=== PATIENT | female | born 1960 | race Caucasian/White ===

== ENCOUNTER 2016-10-01 19:13 | Emergency (ER) | payer OTHER ==
--- NOTE | 2016-10-01 21:15 | DIAGNOSTIC IMAGING REPORT ---
PROCEDURE: CT ABDOMEN/PELVIS W/O CONTRAST INDICATION: Diarrhea, fever, distention, pain. History of splenomegaly. Status post appendectomy. TECHNIQUE: Noncontrast axial images with sagittal and coronal reformations. Intravenous contrast not utilized (the patient reports contrast allergy). COMPARISON: Comparison is made to limited abdominal ultrasound 01/22/2012. FINDINGS: ABDOMEN: There is a heterogeneous hyperdense appearance of the liver with nodular surface changes (suggest cirrhosis). There is evidence of portal hypertension with upper abdominal and periumbilical varices, and moderate to marked splenomegaly (17 cm). There is a small amount of ascites. There is moderate to marked thickening of the gallbladder wall. There is a moderate amount of ingested material in the stomach. There is moderate mucosal thickening of the distal esophagus of. Small bowel pattern is within normal limits. There is moderate mucosal thickening of the cecum, ascending colon, and proximal transverse colon with mild surrounding of pericolonic edema. Status post appendectomy. Pancreas, kidneys, and aorta are normal. Mild degenerative changes of the lumbar spine. There is an old calcified granuloma at the left lung base. PELVIS: Uterus and adnexal structures are normal. Small amount of ascites. IMPRESSION: 1. Moderate mucosal thickening of the right colon with pericolonic edema. Findings suggest enterocolitis (most likely infectious, idiopathic less likely). 2. Hyperdense liver with cirrhosis. While etiology is unclear, consider hemosiderosis or hemochromatosis. 3. Portal hypertension with abdominal and periumbilical varices, associated with moderate to marked splenomegaly (17 cm). 4. Small amount of ascites. 5. Moderate mucosal thickening of the gallbladder is nonspecific, although could be related to low protein state, intrinsic liver disease, ascites, or cholecystitis. No evidence of calcified gallstones. 6. Status post appendectomy. 7. Findings discussed with ELMER Montes. All CT scans at this facility use dose modulation, iterative reconstruction, and/or weight-based dosing when appropriate to reduce radiation dose to as low as reasonably achievable.
--- NOTE | 2016-10-01 21:49 | ED ORDER SUMMARY ---
..... Patient: VALENCIA ALCARAZ OrderSheet [facility] VisitID: [id number] [address] [place] [address] 56y, F Registration Date/Time: 10/01/2016 ORDER SHEET Weight: 70.3 kg (stated) Allergies: IV Contrast, Morphine Sulfate GENERAL ORDERS: UA-Culture if indicated Urgent (19:31 10/01/2016 EKoroleva P.A.-C) (Ack 19:34 CHategekimana) (21:00 CBradburn R.N.) CMP Urgent (19:10/01/2016 EKoroleva P.A.-C) (Ack 19:34 CHategekimana) (19:49 CBradburn R.N.) CBC w Diff Urgent (19:10/01/2016 EKoroleva P.A.-C) (Ack 19:34 CHategekimana) (19:49 CBradburn R.N.) PT with INR Urgent (19:31 10/01/2016 EKoroleva P.A.-C) (Ack 19:34 CHategekimana) (20:07 CBradburn R.N.) PTT Urgent (19:31 10/01/2016 EKoroleva P.A.-C) (Ack 19:34 CHategekimana) (20:07 CBradburn R.N.) Amylase Urgent (19:10/01/2016 EKoroleva P.A.-C) (Ack 19:34 CHategekimana) (19:49 CBradburn R.N.) Lipase Urgent (19:31 10/01/2016 EKoroleva P.A.-C) (Ack 19:34 CHategekimana) (19:49 CBradburn R.N.) Urine Drug Screen Urgent (19:37 10/01/2016 EKoroleva P.A.-C) (Ack 19:39 CHategekimana) (21:00 CBradburn R.N.) Ethyl Alcohol Urgent (19:37 10/01/2016 EKoroleva P.A.-C) (Ack 19:39 CHategekimana) (19:49 CBradburn R.N.) PCT (Procalcitonin) Urgent (19:37 10/01/2016 EKoroleva P.A.-C) (Ack 19:40 Ayoekimana) (19:49 CBradburn R.N.) CT Abd/Pel wo Cont Urgent (20:22 10/01/2016 EKoroleva P.A.-C) (Ack 20:32 Danina) (20:33 MCampbell) Vitals (21:26 10/01/2016 EKoroleva P.A.-C) (21:29 CBradburn R.N.) MEDICATION ORDERS: Ciprofloxacin PO 500 mg (NOW) (21:40 10/01/2016 EKoroleva P.A.-C) (Ack 21:40 CBradburn R.N.) (21:44 CBradburn R.N.) IV FLUIDS: IV NS : initial bolus 1000 mL (1000 mL/hr), then 20 mL/hr for X1 (NOW); Maxim (19:31 10/01/2016 EKoroleva P.A.-C) (Ack 19:50 CBradburn R.N.) (20:18 CBradburn R.N.) Reglan IV 10 mg (NOW) (19:31 10/01/2016 EKoroleva P.A.-C) (Ack 19:50 CBradburn R.N.) Zofran IV 4 mg (NOW) (19:31 10/01/2016 EKoroleva P.A.-C) (Ack 19:50 CBradburn R.N.) (20:19 CBradburn R.N.) ORDER SHEET NOTES: [Electronically signed by Maricarmen Gonzalez R.N. (22:01 10/01/2016)] [Electronically signed by Ramonita Arango P.A.-C (22:21 10/01/2016)] [Electronically locked/signed by Maricarmen Gonzalez R.N. (22:01 10/01/2016)]
--- NOTE | 2016-10-01 21:49 | ED NURSING NOTES ---
Clinical Report - Nurses [place] [address] [place] [address] 10/01/2016 19:16 Patient: VALENCIA ALCARAZ TRIAGE Triage time 19:20. Acuity: LEVEL 3. Chief Complaint: ABDOMINAL PAIN and DIARRHEA and FEVER and CHILLS. --19:27 Maricarmen Gonzalez R.N. 19:20 10/01/16. BP: 109/70 taken on the left arm, while lying. HR: 89 (regular and normal rate). RR: 18. O2 saturation: 97%. Temp: 97.9 F (oral). Pain level now: 08/03. --19:27 Maricarmen Gonzalez R.N. Weight: 70.3 kg stated. Height/Length: 63 inches Per Patient. BMI: 27.5. --19:23 Maricarmen Gonzalez R.N. Medications None. --19:24 Maricarmen Gonzalez R.N. Allergies IV Contrast. Morphine Sulfate. --19:24 Maricarmen Gonzalez R.N. History Arrived by private vehicle. Historian: patient. Accompanied by family. Primary physician (madan). Onset was gradual. Symptoms are intermittent (3 days ago). ( diarrhea started 3 days ago, headache, decreased appitite). She has had fever, diarrhea and abdominal pain. SOCIAL HX: Smoker - current status unknown. History of IV drug use: methamphetamines. Recently used drugs days ago. No alcohol use. SELF HARM ASSESSMENT: A self harm assessment was performed. The patient answered "no" to the question "Have you recently felt down, depressed, or hopeless?", "Have you noticed less interest or pleasure in doing things?", "Do you have thoughts of harming or killing yourself?", "Are you here because you tried to hurt yourself?", "Have you ever tried to hurt yourself before today?", "Have you recently had thoughts about harming or killing others?" and "Do you have any dangerous items in your possession?". --19:27 Maricarmen Gonzalez R.N. SOCIAL HX: Heavy tobacco smoker- 1 pack per day. --19:29 Maricarmen Gonzalez R.N. PROBLEMS: Enlarged spleen. Lumbar Strain. Abnormal Liver Function Test. Abdominal Pain. LNMP - Last Normal Menstrual Period. Hyperthyroidism. Neck pain. Degenerative Joint Disease. Ulcer years ago. Asthma. Last Tetanus. Contusion. Abrasion(s). UTI - Urinary Tract Infection. Eye Injury. Tetanus Status. Substance Abuse. Thyroid Disease. Chronic Back Pain. COPD - Chronic Obstructive Pulmonary Disease. Corneal Abrasion. --19: Maricarmen Gonzalez R.N. Peptic Ulcer Disease [RuleOut]. --19:25 Maricarmen Gonzalez R.N. Hepatitis [Chronic]. --19:38 Ramonita Arango P.A.-C The following entry was modified by Ramonita Arango P.A.-C, 19:38 <<STRICKEN ENTRY-- Hepatitis. --:27 Maricarmen Gonzalez R.N. --END STRIKE>>. ADDITIONAL SURGERIES: Appendectomy. Tubal Ligation. --: Maricarmen Gonzalez R.N. Interventions ID band on patient. --: Maricarmen Gonzalez R.N. PHYSICAL ASSESSMENT Ambulatory to room. GENERAL / NEURO / PSYCH: Alert. Oriented X 4. Appears anxious. HEENT: Mucous membranes are pink. RESPIRATORY: Respirations not labored. Breath sounds within normal limits. CVS: Normal sinus rhythm noted. Capillary refill less than 2 seconds. GI / : Abdomen soft and nontender. Bowel sounds within normal limits. SKIN: Skin is warm and dry. --:28 Maricarmen Gonzalez R.N. NURSING PROGRESS NOTES Patient gowned. Two patient identifiers checked. Call light placed in reach. Side rails up x 2. Bed placed in lowest position. Brakes of bed on. -- Maricarmen Gonzalez R.N. Patient ready for evaluation- chart flagged. --:28 Maricarmen Gonzalez R.N. 19:57 10/01/2016 Site #1 started via IV in the right hand with an 22g angiocath, with aseptic technique and good blood return; one attempt. Saline lock flushed with 10 mL saline. --19:57 Shavonne Joiner R.N. 20:11 10/01/2016 Started bag #1 1000 mL IV Fluids IV NS (Saline); bolus of 1000 mL wide open then over 1 hour(s) via site #1. Allergies verified and confirmed 5 rights. IV patency established. IV site checked: no pain, redness, or swelling. IV flushed thoroughly pre- and post-medication administration. --20:18 Maricarmen Gonzalez R.N. 20:12 10/01/2016 Reglan IV 10 mg (NOW) was refused by patient because nausea is gone. Maricarmen Gonzalez --20:19 Maricarmen Gonzalez R.N. 20:12 10/01/2016 Zofran (Ondansetron HCl) IVP 4 mg given over 1 minute(s) via site #1. Allergies verified and confirmed 5 rights. IV patency established. IV site checked: no pain, redness, or swelling. IV flushed thoroughly pre- and post-medication administration. IVP given by RN. --20:19 Maricarmen Gonzalez R.N. The patient is resting quietly. Overall patient status is the same- she states feels the same. GI / : Abdomen soft. Bowel sounds within normal limits. SKIN: Skin is warm and dry. Skin color within normal limits. --21:29 Maricarmen Gonzalez R.N. 21:15 10/01/16. BP: 112/60 taken on the left arm, while lying. HR: 74 (regular and normal rate). RR: 18 (regular and unlabored). O2 saturation: 100% on room air. Temp: deferred. Pain level now: 11/03. --21:29 Maricarmen Gonzalez R.N. 21:44 10/01/2016 Ciprofloxacin (Ciprofloxacin) PO Tablets 500 mg given. Allergies verified and confirmed 5 rights. --21:44 Maricarmen Gonzalez R.N. 21:44 10/01/16. BP: 108/52 taken on the left arm, while lying. HR: 84 (regular and normal rate). RR: 18 (regular). O2 saturation: 98% on room air. Temp: deferred. Pain level now: 10/03. --21:45 Maricarmen Gonzalez R.N. Overall patient status is improved- she states feels the same. --21:45 Maricarmen Gonzalez R.N. 21:59 10/01/2016 IV Fluids IV NS Discontinued: bag #1 completed upon discharge. Total amount infused: 1000 mL. IV patency established. IV site checked: no pain, redness, or swelling. IV flushed thoroughly. --21:59 Maricarmen Gonzalez R.N. 22:00 10/01/2016 Site #1 removed upon discharge. Catheter intact. Manual pressure and bandage applied. --22:00 Maricarmen Gonzalez R.N. DISPOSITION / DISCHARGE Condition at departure: improved and stable. No learning barriers present. Discharge instructions provided and reviewed with the patient. Reviewed medication(s) side effects, precautions, dosing and course information. Prescription(s) given to the patient. Patient verbalized understanding. Written instructions provided in Setswana. The patient was discharged home and accompanied by spouse. She left the Emergency Department ambulatory and via private vehicle. Spouse driving. --22:01 Maricarmen Gonzalez R.N. 22:00 10/01/16. BP: 109/54 taken on the left arm, while sitting. HR: 83 (regular and normal rate). RR: 18. O2 saturation: 98% on room air. Temp: deferred. Pain level now: 08/03. --22:01 Maricarmen Gonzalez R.N. Departure time: 22:01. --22:01 Maricarmen Gonzalez R.N. Locked/Released at 10/01/2016 22:02 by Maricarmen Gonzalez R.N.
--- NOTE | 2016-10-01 21:49 | ED CLINICAL REPORT ---
Clinical Report - Physicians/Mid Levels [facility] [address] [place] [address] 10/01/2016 19:16 Patient: VALENCIA ALCARAZ Time Seen: 19:39 Oct 01 2016. Arrived- By private vehicle. Historian- patient (friend). HISTORY OF PRESENT ILLNESS Chief Complaint: VOMITING and DIARRHEA. This started 3 days [employer] and is still present. The patient has had nausea, vomiting and diarrhea. Has not recently been camping or on antibiotics. The illness is described as moderate. (atient reports diarrhea nausea and vomiting off and on abdominal pain over the last 3 days. Reports some fevers at home. Denies any recent antibiotic use or hospitalizations. Patient reports history of hepatitis C. Reports recent drug use, mass about 5-7 days previously. Denies recent hospitalization. Parts hospitalization previously with thrombocytopenia.). REVIEW OF SYSTEMS The patient has had fever. No headache. All systems otherwise negative, except as recorded above. PAST HISTORY Problems: Hepatitis [Chronic]. Enlarged spleen. Lumbar Strain. Abnormal Liver Function Test. Abdominal Pain. LNMP - Last Normal Menstrual Period. Hyperthyroidism. Neck pain. Degenerative Joint Disease. Ulcer years ago. Asthma. Last Tetanus. Contusion. Abrasion(s). UTI - Urinary Tract Infection. Eye Injury. Tetanus Status. Substance Abuse. Thyroid Disease. Chronic Back Pain. COPD - Chronic Obstructive Pulmonary Disease. Corneal Abrasion. Additional Surgeries: Appendectomy. Tubal Ligation. Medications: None. Allergies: IV Contrast. Morphine Sulfate. SOCIAL HISTORY Alcohol use. History of IV drug use: methamphetamines. ADDITIONAL NOTES The nursing notes have been reviewed. PHYSICAL EXAM Vital Signs: 10/01/2016 19:20 BP: 109/70. HR: 89. RR: 18. O2 saturation: 97%. Temp: 97.9 F. Pain level now: 3/10. Appearance: Alert. No apparent distress. Does not appear to be anxious. ENT: Nose normal. Neck: Normal inspection. No lymphadenopathy. CVS: Normal heart rate and rhythm. Heart sounds normal. Respiratory: No respiratory distress. Breath sounds normal. No accessory muscle use or decreased air movement. Abdomen: Mild tenderness in the periumbilical area and suprapubic area. No tenderness in the right upper quadrant or guarding. Neuro: Oriented X 3. No motor deficit. LABS, X-RAYS, AND EKG Abdominal CT: IMPRESSION: 1. Moderate mucosal thickening of the right colon with pericolonic edema. Findings suggest enterocolitis (most likely infectious, idiopathic less likely). 2. Hyperdense liver with cirrhosis. While etiology is unclear, consider hemosiderosis or hemochromatosis. 3. Portal hypertension with abdominal and periumbilical varices, associated with moderate to marked splenomegaly (17 cm). 4. Small amount of ascites. 5. Moderate mucosal thickening of the gallbladder is nonspecific, although could be related to low protein state, intrinsic liver disease, ascites, or cholecystitis. No evidence of calcified gallstones. 6. Status post appendectomy. 7. Findings discussed with ELMER Montes. All CT scans at this facility use dose modulation, iterative reconstruction, and/or weight-based dosing when appropriate to reduce radiation dose to as low as reasonably achievable. Electronically Final signed by:Rolando Roldan MD 10/01/2016 9:11:54 PM. Laboratory Tests: UA-Culture if indicated: (YULIANA: 10/01/2016 20:50) ( MsgRcvd 10/01/2016 21:12) Final results Test Result Flag Units (Reference) URINE COLOR YELLOW URINE APPEARANCE CLEAR URINE GLUCOSE NEGATIVE (NEGATIVE) URINE BILIRUBIN NEGATIVE (NEGATIVE) URINE KETONE NEGATIVE (NEGATIVE) URINE SPECIFIC GRAVITY 1.015 (1.010-1.030) URINE PH 7.5 (5.0-8.0) URINE PROTEIN NEGATIVE (NEGATIVE) URINE UROBILINOGEN >=8.0 EU/dL (0.2-1.0) URINE NITRITE NEGATIVE (NEGATIVE) URINE BLOOD NEGATIVE (NEGATIVE) URINE LEUK ESTERASE NEGATIVE (NEGATIVE) URINE RBC 0-1 rbc/hpf (0-1) URINE WBC 0-1 wbc/hpf (0-1) URINE EPITHELIAL CELLS 1-3 EPI/hpf (0-5) URINE BACTERIA TRACE (<1+) (NONE SEEN) URINE COMMENT CULT NOT INDICATED URINE CULTURES ARE SET-UP BASED ON THE FOLLOWING CRITERIA:POSITIVE NITRITEPOSITIVE LEUKOCYTE ESTERASEGREATER THAN 10 WHITE BLOOD CELLSMODERATE (2+) OR GREATER BACTERIA CBC w Diff: (YULIANA: 10/01/2016 19:45) ( [facility] 10/01/2016 20:01) Final results Test Result Flag Units (Reference) WHITE BLOOD COUNT 4.6 K/uL (4.5-11.5) RED BLOOD COUNT 4.01 M/uL (4.00-5.20) HEMOGLOBIN 12.6 gm/dL (12.0-16.0) HEMATOCRIT 37.0 % (36.0-46.0) MEAN CELL VOLUME 92 fL (80-100) MEAN CORPUSCULAR HGB 31 pg (26-34) MEAN CORPUSCULAR HGB CONC 34 g/dL (31-37) RED CELL DISTRIBUTION WIDTH 15.3 H % (11.6-14.8) PLATELET COUNT 50 L K/uL (150-400) NEUTROPHIL % 71.2 % (50-75) LYMPH % 17.5 L % (25-40) MONO % 6.7 % (3-14) EOSINOPHIL % 4.6 H % (0-4) BASOPHIL % 0 % (0-2) PT with INR: (YULIANA: 10/01/2016 19:45) ( [facility] 10/01/2016 20:11) Final results Test Result Flag Units (Reference) INR 1.2 (0.8-1.2) Low Intensity Therapy: INR 1.5-2.0 PT range 18.5-23.1Mod.Intensity Therapy: INR 2.0-3.0 PT range 23.1-31.5High Intensity Therapy: INR 2.5-3.5 PT range 27.4-35.5High Intensity Therapy 2: INR 3.0-4.0 PT range 31.5-39.3 APTT 28 SECONDS (24-34) [id number]: (YULIANA: 10/01/2016 19:45) ( [facility] 10/01/2016 20:33) Final results Test Result Flag Units (Reference) PROCALCITONIN <0.5 ng/mL (0-0.5) PCT Concentration: Interpretation : Risk/option for action PCT <=0.5 ng/mL : Systemic : Low risk forinfection(sepsis): progression to severeis not likely. : systemic infection.Local bacterial : CAUTION-PCT levelsinfection is : below 0.5 ng/mL do notpossible. : exclude an infection,because localizedinfections (withoutsystemic signs) may beassociated with suchlow levels. If PCT ismeasured very earlyafter a bacterialchallenge (usually <6hours), these valuesmay still be low. Inthis case PCT shouldbe re-assessed 6-24hours later. PCT >0.5 and : Systemic infection: Moderate risk for<= 2 ng/mL : (sepsis) is : progression to severepossible, but : systemic infection.other conditions : The patient should beare known to : closely monitoredelevate PCT. : both clinically andby re-assessing PCTwithin 6-24 hours. PCT > 2 ng/mL : Systemic infection: High risk for(sepsis) is likely: progression to severeunless other : systemic infection.causes are known. : PCT >= 10 ng/mL : Important systemic: High likelihood ofinflammatory : severe sepsis orresponse, almost : septic shock.exclusively due to:severe bacterial :sepsis or septic :shock. : Urine Drug Screen: (YULIANA: 10/01/2016 20:50) ( [facility] 10/01/2016 21:25) Final results Test Result Flag Units (Reference) AMPHETAMINE/METHAMPHETAMINE POSITIVE H (NEGATIVE) BARBITURATE NEGATIVE (NEGATIVE) BENZODIAZEPINE NEGATIVE (NEGATIVE) CANNABINOID NEGATIVE (NEGATIVE) COCAINE NEGATIVE (NEGATIVE) ECSTASY NEGATIVE (NEGATIVE) METHADONE NEGATIVE (NEGATIVE) OPIATE NEGATIVE (NEGATIVE) The urine drug screen is a qualitative screening test fordrug overdose and abuse. All screen results should beconsidered as presumptive.Drugs screened for are as follows:BenzodiazepinesCocaineAmphetamines/MetamphetaminesTHC (Tetrahydrocannabinol)OpiatesBarbituratesEcstasyMethadonePositive results are unconfirmed. For confirmation, notifythe lab for the specimen to be sent to the reference lab.All confirmations must be performed by a differentmethodology.The ingestion of natural herbal and plant productscontaining Ephedra/Ephedra metabolites can produce in urineone or more substances capable of cross reacting withamphetamine/methamphetamine immunoassays. These testsprovide a preliminary result only. A more specificalternative chemical method must be used to obtain aconfirmed analytical result. Ethyl Alcohol: (YULIANA: 10/01/2016 19:45) ( [facility] 10/01/2016 20:14) Final results Test Result Flag Units (Reference) ETHYL ALCOHOL <3 L mg/dL (3-10) CMP: (YULIANA: 10/01/2016 19:45) ( [facility] 10/01/2016 20:14) Final results Test Result Flag Units (Reference) GLUCOSE 118 H mg/dL (70-110) BUN 10 mg/dL (7-18) CREATININE 0.7 mg/dL (0.6-1.3) Estimated GFR >60 mL/min Estimated GFR- >60 mL/min Note: Persistent reduction over 3 months in eGFR<60 mL/min/1.73 m2 defines CKD. Patients with eGFR values>=60 mL/min/1.73 m2 may also have CKD if evidence ofpersistent proteinuria. Additional information may be foundat www.kidney.org. SODIUM 145 mmol/L (136-145) POTASSIUM 3.5 mmol/L (3.5-5.1) CHLORIDE 109 H mmol/L (98-107) CARBON DIOXIDE 28 mmol/L (21-32) CALCIUM 7.7 L mg/dL (8.5-10.1) TOTAL PROTEIN 7.5 g/dL (6.4-8.2) ALBUMIN 2.8 L g/dL (3.3-5.0) BILIRUBIN, TOTAL 0.8 mg/dL (0.0-1.0) ALKALINE PHOSPHATASE 149 H U/L (46-116) AST (SGOT) 80 H U/L (15-37) ALT (SGPT) 119 H U/L (12-78) LIPASE 278 U/L (73-393) AMYLASE 44 U/L (25-115) . Note - Tests: (OLD CT: IMPRESSION- 1. Colitis, ascending colon. 2. Cirrhotic liver with evidence of worsening portal hypertension including new splenomegaly and more conspicuous portosystemic collaterals. RADIA Dictated By: Keyon Davalos MD 2016-04-05 19:51:55.177 Signed By: Keyon Davalos MD 2016-04-05 19:51:55.0 Transcribed By: Keyon Davalos 2016-04-05 19:51:55.253 OLD US: IMPRESSION- 1. Mildly thickened gallbladder wall measures 3.7 mm, appears less thick than the prior . No gallstones or sludge . No pericholecystic fluid. Positive sonographic Jade sign. 2. Common hepatic duct measures 4.4 mm. Common bile duct measures 6.9 millimeters which is prominent, upper limits of normal, but decreased from the prior 3. Splenomegaly, length of 15.9 cm 4. Cirrhosis RADIA Dictated By: Abelino Del Toro MD 2016-04-05 19:14:59.29 Signed By: Abelino Del Toro MD 2016-04-05 19:14:59.0 Addendum: ADDENDUM: 04/05/16 19:16 Acalculus acute cholecystitis not excluded in the appropriate clinical setting. No ascites is seen.). PROGRESS AND PROCEDURES Course of Care: During the time in the ED, the following DDX were considered: acute surgical abdomen, hemodynamic or metabolic instability, dehydration, gastroenteritis-viral, food borne, or bacterial, food intolerance, irritable or inflammatory bowel, infection, sepsis. H expresses desire to leave. She has a history of hepatitis C complicated with thrombocytopenia, as well as poor compliance. Patient was previously for colonoscopy out, however missed her appointment in June, has not rescheduled. Denies melena or hematochezia. Generalized abdominal pain. With no right upper quadrant tenderness. 04/05/16 patient admitted with similar symptoms with meth abuse, sepsis, colitis, thrombocytopenia at the time with elevated LFT. patient's was signs of hyperglycemia, suspect is also due to diarrhea. Otherwise stable. Discharged to home care. 10/01/2016 22:00 BP: 109/54. HR: 83. RR: 18. O2 saturation: 98%. Pain level now: 3/10. Patient is stable. Symptoms better. Patient/family counseled. Disposition: Discharged. CLINICAL IMPRESSION Vomiting with nausea and volume depletion. Diarrhea Acute gastroenteritis with volume depletion and dehydration. Moderate hypocalcemia. Chronic Elevated LFT Thrombocytopenia. INSTRUCTIONS Drink plenty of fluids. Warnings: Further evaluation is necessary. Prescription Medications: Zofran (orally disintegrating tablets) 4 mg: take 1 orally every 6 hours for 5 days as needed for nausea. Dispense fifteen (15). No refill. Substitution is permissible. Cipro 500 mg: take 1 tab orally every 12 hours for 10 days. No refills. Substitution is permissible. OTC Medications: Calcium Carbonate chewable tabs 1000 mg (available over the counter): chew and swallow 1 tab every 8 hours for 7 days. Dispense forty (40). No refill. Follow-up: Follow up with your doctor in three days as needed. (Electronically signed by Ramonita Arango P.A.-C 10/01/2016 22:21)
--- NOTE | 2016-10-01 21:49 | ED ORDER SUMMARY ---
..... Patient: VALENCIA ALCARAZ OrderSheet [facility] VisitID: [id number] [address] [place] [address] 56y, F Registration Date/Time: 10/01/2016 ORDER SHEET Weight: 70.3 kg (stated) Allergies: IV Contrast, Morphine Sulfate GENERAL ORDERS: UA-Culture if indicated Urgent (19:31 10/01/2016 EKoroleva P.A.-C) (Ack 19:34 CHategekimana) (21:00 CBradburn R.N.) CMP Urgent (19:10/01/2016 EKoroleva P.A.-C) (Ack 19:34 CHategekimana) (19:49 CBradburn R.N.) CBC w Diff Urgent (19:10/01/2016 EKoroleva P.A.-C) (Ack 19:34 CHategekimana) (19:49 CBradburn R.N.) PT with INR Urgent (19:31 10/01/2016 EKoroleva P.A.-C) (Ack 19:34 CHategekimana) (20:07 CBradburn R.N.) PTT Urgent (19:31 10/01/2016 EKoroleva P.A.-C) (Ack 19:34 CHategekimana) (20:07 CBradburn R.N.) Amylase Urgent (19:10/01/2016 EKoroleva P.A.-C) (Ack 19:34 CHategekimana) (19:49 CBradburn R.N.) Lipase Urgent (19:31 10/01/2016 EKoroleva P.A.-C) (Ack 19:34 CHategekimana) (19:49 CBradburn R.N.) Urine Drug Screen Urgent (19:37 10/01/2016 EKoroleva P.A.-C) (Ack 19:39 CHategekimana) (21:00 CBradburn R.N.) Ethyl Alcohol Urgent (19:37 10/01/2016 EKoroleva P.A.-C) (Ack 19:39 CHategekimana) (19:49 CBradburn R.N.) PCT (Procalcitonin) Urgent (19:37 10/01/2016 EKoroleva P.A.-C) (Ack 19:40 Ayoekimana) (19:49 CBradburn R.N.) CT Abd/Pel wo Cont Urgent (20:22 10/01/2016 EKoroleva P.A.-C) (Ack 20:32 Danina) (20:33 MCampbell) Vitals (21:26 10/01/2016 EKoroleva P.A.-C) (21:29 CBradburn R.N.) MEDICATION ORDERS: Ciprofloxacin PO 500 mg (NOW) (21:40 10/01/2016 EKoroleva P.A.-C) (Ack 21:40 CBradburn R.N.) (21:44 CBradburn R.N.) IV FLUIDS: IV NS : initial bolus 1000 mL (1000 mL/hr), then 20 mL/hr for X1 (NOW); Maxim (19:31 10/01/2016 EKoroleva P.A.-C) (Ack 19:50 CBradburn R.N.) (20:18 CBradburn R.N.) Reglan IV 10 mg (NOW) (19:31 10/01/2016 EKoroleva P.A.-C) (Ack 19:50 CBradburn R.N.) Zofran IV 4 mg (NOW) (19:31 10/01/2016 EKoroleva P.A.-C) (Ack 19:50 CBradburn R.N.) (20:19 CBradburn R.N.) ORDER SHEET NOTES: [Electronically signed by Maricarmen Gonzalez R.N. (22:01 10/01/2016)] [Electronically signed by Ramonita Arango P.A.-C (22:21 10/01/2016)] [Electronically locked/signed by Maricarmen Gonzalez R.N. (22:01 10/01/2016)]
--- NOTE | 2016-10-01 22:22 | ED MED RECONCILIATION SUMMARY ---
Patient: VALENCIA ALCARAZ Medication Reconciliation Report [facility] VisitID: [id number] [address] [place] [address] 56y, F Registration Date/Time: 10/01/2016 Weight: 70.3 kg Height/Length: 63 in. BMI: 27.5 ALLERGIES: IV Contrast, Morphine Sulfate The patient's Home Medications are listed below: NONE. The source(s) of the original Home Medication information: Not obtained. The following Medications were given to the patient in the Emergency Department: IV NS IV Fluids bolus 1000 mL wide open, administered: 10/01/2016 8:11:00 PM Zofran [IVP] IVP 4 mg, administered: 10/01/2016 8:12:00 PM Ciprofloxacin [PO] PO 500 mg, administered: 10/01/2016 9:44:00 PM The following Medications were prescribed to the patient: Zofran (orally disintegrating tablets) 4 mg: take 1 orally every 6 hours for 5 days as needed for nausea. Dispense fifteen (15). No refill. Substitution is permissible. -- Ramonita Arango, P.A.-Elida Cipro 500 mg: take 1 tab orally every 12 hours for 10 days. No refills. Substitution is permissible. -- Ramonita Arango, P.A.-Elida Calcium Carbonate chewable tabs 1000 mg (available over the counter): chew and swallow 1 tab every 8 hours for 7 days. Dispense forty (40). No refill. -- Ramonita Arango, P.A.-C
--- NOTE | 2016-10-01 22:22 | ED DISCHARGE INSTRUCTIONS ---
Patient: VALENCIA ALCARAZ General Instructions [facility] VisitID: [id number] [place] [address] 56y, F Registration Date/Time: 10/01/2016 Vomiting with nausea and volume depletion. Diarrhea Acute gastroenteritis with volume depletion and dehydration. Moderate hypocalcemia. Chronic Elevated LFT Thrombocytopenia. INSTRUCTIONS Drink plenty of fluids. Warnings: Further evaluation is necessary. Prescription Medications: Zofran (orally disintegrating tablets) 4 mg: take 1 orally every 6 hours for 5 days as needed for nausea. Dispense fifteen (15). No refill. Substitution is permissible. Cipro 500 mg: take 1 tab orally every 12 hours for 10 days. No refills. Substitution is permissible. OTC Medications: Calcium Carbonate chewable tabs 1000 mg (available over the counter): chew and swallow 1 tab every 8 hours for 7 days. Dispense forty (40). No refill. Follow-up: Follow up with your doctor in three days as needed. ADDITIONAL INFORMATION Diarrhea, Uncertain Cause (Adult, Report Pending) Diarrhea has several possible causes. Commonstomach fluis caused by a virus. Food poisoning, bacteria or parasites are other causes for diarrhea. Only diarrhea caused by bacteria or parasites requires treatment with an antibiotic. Diarrhea from a virus or food poisoning improves with simple home treatment. A stool sample is needed to make the diagnosis of an infection with bacteria or parasites. Up to three stool specimens may be required to diagnose This may take up to two days to get the result. It may be necessary to wait until the stool test is complete to make the diagnosis and select the best antibiotic to prescribe. Home Care: If symptoms are severe, rest at home for the next 24 hours or until you are feeling better. You may use acetaminophen (Tylenol) or ibuprofen (Motrin, Advil) to control fever, unless another medicine was prescribed. [NOTE: If you have chronic liver or kidney disease or ever had a stomach ulcer or GI bleeding, talk with your doctor before using these medicines.] (Aspirin should never be used in anyone under 18 years of age who is ill with a fever. It may cause severe liver damage.) Avoid tobacco, caffeine and alcohol, which may worsen your symptoms. If anti-diarrhea medicine was prescribed, take this only as directed. Sometimes anti-diarrhea medicine can make your condition worse if the cause is an infectious diarrhea. Therefore, anti-diarrhea medicine should not be taken for this condition unless advised by your doctor. During The First 12-24 Hours follow the diet below: BEVERAGES: Sport drinks like Gatorade, soft drinks without caffeine; daphne melanie, mineral water (plain or flavored), decaffeinated tea and coffee. SOUPS: Clear broth, consomm and bouillon DESSERTS: Plain gelatin (Jell-O), popsicles and fruit juice bars. During The Next 24 Hours you may add the following to the above: Hot cereal, plain toast, bread, rolls, crackers Plain noodles, rice, mashed potatoes, chicken noodle or rice soup Unsweetened canned fruit (avoid pineapple), bananas Limit fat intake to less than 15 grams per day by avoiding margarine, butter, oils, mayonnaise, sauces, gravies, fried foods, peanut butter, meat, poultry and fish. Limit fiber; avoid raw or cooked vegetables, fresh fruits (except bananas) and bran cereals. Limit caffeine and chocolate. No spices or seasonings except salt. During The Next 24 Hours Gradually resume a normal diet, as you feel better and your symptoms lessen. Follow Up with your doctor or as advised if you are not improving over the next two days. If you were asked to bring a specimen from home, bring the sample on the day of collection. You may call in 2 days (or as directed) for the results. Get Prompt Medical Attention if any of the following occur: Increasing abdominal pain or constant lower right abdominal pain Continued vomiting (unable to keep liquids down) Frequent diarrhea (more than 5 times a day) Blood in vomit or stool (black or red color) Reduced oral intake Dark urine, reduced urine output Weakness, dizziness, fainting Drowsiness, confusion, stiff neck or seizure Fever of 100.4F (38C) oral or higher, not better with fever medication New rash Dehydration (Adult) Dehydration occurs when your body loses too much fluid. This may be the result of vomiting a lot or from diarrhea,sweating a lot, or a high fever. It may also happen if you dont drink enough fluid when youre sick. Misuse of diuretics (water pills) can also be a cause. Symptoms include thirst and feeling dizzy, weak, fatigued, or very drowsy. The diet described below is usually enough to treat most cases. Sometimes you may needmedicine. Home Care Follow these guidelines for home care: Drink at least 12 8-ounce glasses of fluid every day to overcome the dehydration. Fluid may include water; orange juice; lemonade; apple, grape, and cranberry juice; clear fruit drinks; electrolyte replacement and sports drinks; and teas and coffee without caffeine. If you have been diagnosed with a kidney disease, ask your doctor how much and what types of fluids you should drink to prevent dehydration. If you have kidney disease, drinking too much fluid can cause it build up in the your body and be dangerous to your health. If you have fever, muscle aching, or headache from a viral syndrome, you may useacetaminophen or ibuprofen, unless another medicine was prescribed for this.If you have chronic liver or kidney disease or ever had a stomach ulcer or GI bleeding, talk with your doctor before using these medicines. Don't take aspirin if you are younger than 18 and are ill with a fever.Aspirin raises the chance forsevere liver injury. Follow-up care Follow up with your health care provider if you don't get better in the next 24 to 48 hours. When to seek medical care Get prompt medical attention if any of theseoccur: Continued vomiting (cant keep liquids down) Frequent diarrhea (more than 5 times a day); blood (red or black color) or mucus in diarrhea Blood in vomit or stool Swollen abdomen or increasing abdominal pain Weakness, dizziness, or fainting Unusually drowsy or confused Reduced urine output or extreme thirst Fever of 100.4 F (38 C) oral or higher that does not get better with fever medication Ondansetron Hydrochloride Oral tablet What is this medicine? ONDANSETRON (on ACOSTA se brendan) is used to treat nausea and vomiting caused by chemotherapy. It is also used to prevent or treat nausea and vomiting after surgery. How should I use this medicine? Take this medicine by mouth with a glass of water. Follow the directions on your prescription label. Take your doses at regular intervals. Do not take your medicine more often than directed. Talk to your inspector eyeglass frames regarding the use of this medicine in children. Special care may be needed. What side effects may I notice from receiving this medicine? Side effects that you should report to your doctor or health neurocritical care physician as soon as possible: allergic reactions like skin rash, itching or hives, swelling of the face, lips or tongue breathing problems dizziness fast or irregular heartbeat feeling faint or lightheaded, falls fever and chills swelling of the hands or feet tightness in the chest Side effects that usually do not require medical attention (report to your doctor or health neurocritical care physician if they continue or are bothersome): constipation or diarrhea headache What may interact with this medicine? Do not take this medicine with any of the following medications: -apomorphine -cisapride -dofetilide -dronedarone -pimozide -thioridazine -ziprasidone This medicine may also interact with the following medications: -carbamazepine -phenytoin -rifampicin -tramadol -other medicines that prolong the QT interval (cause an abnormal heart rhythm) What if I miss a dose? If you miss a dose, take it as soon as you can. If it is almost time for your next dose, take only that dose. Do not take double or extra doses. Where should I keep my medicine? Keep out of the reach of children. Store between 2 and 30 degrees C (36 and 86 degrees F). Throw away any unused medicine after the expiration date. What should I tell my health care provider before I take this medicine? They need to know if you have any of these conditions: heart disease history of irregular heartbeat liver disease low levels of magnesium or potassium in the blood an unusual or allergic reaction to ondansetron, granisetron, other medicines, foods, dyes, or preservatives or trying to get breast-feeding What should I watch for while using this medicine? Check with your doctor or health neurocritical care physician right away if you have any sign of an allergic reaction. Ciprofloxacin Hydrochloride Oral tablet What is this medicine? CIPROFLOXACIN (sip wade FLOX a sin) is a quinolone antibiotic. It is used to treat certain kinds of bacterial infections. It will not work for colds, flu, or other viral infections. How should I use this medicine? Take this medicine by mouth with a glass of water. Follow the directions on the prescription label. Take your medicine at regular intervals. Do not take your medicine more often than directed. Take all of your medicine as directed even if you think your are better. Do not skip doses or stop your medicine early. You can take this medicine with food or on an empty stomach. It can be taken with a meal that contains dairy or calcium, but do not take it alone with a dairy product, like milk or yogurt or calcium-fortified juice. A special MedGuide will be given to you by the pharmacist with each prescription and refill. Be sure to read this information carefully each time. Talk to your inspector eyeglass frames regarding the use of this medicine in children. Special care may be needed. What side effects may I notice from receiving this medicine? Side effects that you should report to your doctor or health neurocritical care physician as soon as possible: - allergic reactions like skin rash, itching or hives, swelling of the face, lips, or tongue - breathing problems - confusion, nightmares or hallucinations - feeling faint or lightheaded, falls - irregular heartbeat - joint, muscle or tendon pain or swelling - pain or trouble passing urine -persistent headache with or without blurred vision - redness, blistering, peeling or loosening of the skin, including inside the mouth - seizure - unusual pain, numbness, tingling, or weakness Side effects that usually do not require medical attention (report to your doctor or health neurocritical care physician if they continue or are bothersome): - diarrhea - nausea or stomach upset - white patches or sores in the mouth What may interact with this medicine? Do not take this medicine with any of the following medications: cisapride droperidol terfenadine tizanidine This medicine may also interact with the following medications: antacids caffeine cyclosporin didanosine (ddI) buffered tablets or powder medicines for diabetes medicines for inflammation like ibuprofen, naproxen methotrexate multivitamins omeprazole phenytoin probenecid sucralfate theophylline warfarin What if I miss a dose? If you miss a dose, take it as soon as you can. If it is almost time for your next dose, take only that dose. Do not take double or extra doses. Where should I keep my medicine? Keep out of the reach of children. Store at room temperature below 30 degrees C (86 degrees F). Keep container tightly closed. Throw away any unused medicine after the expiration date. What should I tell my health care provider before I take this medicine? They need to know if you have any of these conditions: -bone problems -cerebral disease -joint problems -irregular heartbeat -kidney disease -liver disease -myasthenia gravis -seizure disorder -tendon problems -an unusual or allergic reaction to ciprofloxacin, other antibiotics or medicines, foods, dyes, or preservatives - or trying to get -breast-feeding What should I watch for while using this medicine? Tell your doctor or health neurocritical care physician if your symptoms do not improve. Do not treat diarrhea with over the counter products. Contact your doctor if you have diarrhea that lasts more than 2 days or if it is severe and watery. You may get drowsy or dizzy. Do not drive, use machinery, or do anything that needs mental alertness until you know how this medicine affects you. Do not stand or sit up quickly, especially if you are an older patient. This reduces the risk of dizzy or fainting spells. This medicine can make you more sensitive to the sun. Keep out of the sun. If you cannot avoid being in the sun, wear protective clothing and use sunscreen. Do not use sun lamps or tanning beds/booths. Avoid antacids, aluminum, calcium, iron, magnesium, and zinc products for 6 hours before and 2 hours after taking a dose of this medicine. Calcium Carbonate Oral tablet What is this medicine? CALCIUM CARBONATE (ISAI see um ISRA[place] bon ate) is a calcium salt. It is used as an antacid to relieve the symptoms of indigestion and heartburn. It is also used to prevent osteoporosis, as a calcium supplement, and to treat high phosphate levels in patients with kidney disease. How should I use this medicine? Take this medicine by mouth with a glass of water. Follow the directions on the label. Antacids are usually taken after meals and at bedtime, or as directed by your doctor or health neurocritical care physician. Take your medicine at regular intervals. Do not take your medicine more often than directed. Talk to your inspector eyeglass frames regarding the use of this medicine in children. While this medicine may be used in children for selected conditions, precautions do apply. What side effects may I notice from receiving this medicine? Side effects that you should report to your doctor or health neurocritical care physician as soon as possible: allergic reactions like skin rash, itching or hives, swelling of the face, lips, or tongue confusion or irritability headache loss of appetite nausea, vomiting unusually weak or tired Side effects that usually do not require medical attention (report to your doctor or health neurocritical care physician if they continue or are bothersome): constipation stomach gas What may interact with this medicine? Do not take this medicine with any of the following medications: ammonium chloride methenamine This medicine may also interact with the following medications: antibiotics like ciprofloxacin, tetracycline captopril delavirdine gabapentin iron supplements medicines for fungal infections like ketoconazole and itraconazole medicines for seizures like ethotoin and phenytoin mycophenolate quinidine rosuvastatin sucralfate thyroid medicine What if I miss a dose? If you miss a dose, take it as soon as you can. If it is almost time for your next dose, take only that dose. Do not take double or extra doses. Where should I keep my medicine? Keep out of the reach of children. Store at room temperature between 15 and 30 degrees C (59 and 86 degrees F). Throw away any unused medicine after the expiration date. What should I tell my health care provider before I take this medicine? They need to know if you have any of these conditions: constipation dehydration high blood calcium levels kidney disease stomach bleeding, obstruction or ulcer an unusual or allergic reaction to calcium carbonate, other medicines, foods, dyes, or preservatives or trying to get breast-feeding What should I watch for while using this medicine? Tell your doctor or healthcare professional if your symptoms do not start to get better or if they get worse. Do not treat yourself for stomach problems with this medicine for more than 2 weeks. See a doctor if you have black tarry stools, rectal bleeding, or if you feel unusually tired. Do not change to another antacid product without advice. If you are taking other medicines, leave an interval of at least 2 hours before or after taking this medicine. To help reduce constipation, drink several glasses of water a day. You have been given the following additional information: Diarrhea, Unk Cause (Adult) Report Pendg Dehydration (Adult) Ondansetron Hydrochloride Oral tablet Ciprofloxacin Hydrochloride Oral tablet Calcium Carbonate Oral tablet (Electronically signed by Ramonita Arango P.A.-C 10/01/2016 22:21)
--- NOTE | 2016-10-01 22:22 | ED MAR SUMMARY ---
..... Medication Administration Record Located Within [facility] [address] [place] [address] Patient: VALENCIA ALCARAZ Visit ID: [id number] 56y, F Weight: 70.3 kg Height/Length: 63 in BMI: 27.5 ALLERGIES: IV Contrast, Morphine Sulfate Start 20:11 10/01/2016 Maricarmen Gonzalez R.N., Stop 21:59 10/01/2016 Maricarmen Gonzalez R.N. Medication Administered: IV NS (SALINE), Dose: IV Fluids over 1 hour(s), Bolus: 1000 mL wide open, Dispensed: 1000 mL bag, Site: #1 right hand. Medication Ordered: IV NS : initial bolus 1000 mL (1000 mL/hr), then 20 mL/hr for X1 (NOW); Maxim. Given 20:12 10/01/2016 Maricarmen Gonzalez R.N. Medication Administered: ZOFRAN [IVP] (ONDANSETRON HCL), Dose: 4 mg IVP over 1 minute(s), Site: #1 right hand. Medication Ordered: Zofran IV 4 mg (NOW). Given 21:44 10/01/2016 Maricarmen Gonzalez R.N. Medication Administered: CIPROFLOXACIN [PO] (CIPROFLOXACIN), Dose: 500 mg Tablets PO. Medication Ordered: Ciprofloxacin PO 500 mg (NOW).
--- NOTE | 2016-10-01 22:22 | ED MED RECONCILIATION SUMMARY ---
Patient: VALENCIA ALCARAZ Medication Reconciliation Report [facility] VisitID: [id number] [address] [place] [address] 56y, F Registration Date/Time: 10/01/2016 Weight: 70.3 kg Height/Length: 63 in. BMI: 27.5 ALLERGIES: IV Contrast, Morphine Sulfate The patient's Home Medications are listed below: NONE. The source(s) of the original Home Medication information: Not obtained. The following Medications were given to the patient in the Emergency Department: IV NS IV Fluids bolus 1000 mL wide open, administered: 10/01/2016 8:11:00 PM Zofran [IVP] IVP 4 mg, administered: 10/01/2016 8:12:00 PM Ciprofloxacin [PO] PO 500 mg, administered: 10/01/2016 9:44:00 PM The following Medications were prescribed to the patient: Zofran (orally disintegrating tablets) 4 mg: take 1 orally every 6 hours for 5 days as needed for nausea. Dispense fifteen (15). No refill. Substitution is permissible. -- Ramonita Arango, P.A.-Elida Cipro 500 mg: take 1 tab orally every 12 hours for 10 days. No refills. Substitution is permissible. -- Ramonita Arango, P.A.-Elida Calcium Carbonate chewable tabs 1000 mg (available over the counter): chew and swallow 1 tab every 8 hours for 7 days. Dispense forty (40). No refill. -- Ramonita Arango, P.A.-C
--- NOTE | 2016-10-01 22:22 | ED MAR SUMMARY ---
..... Medication Administration Record [facility] [address] [place] [address] Patient: VALENCIA ALCARAZ Visit ID: [id number] 56y, F Weight: 70.3 kg Height/Length: 63 in BMI: 27.5 ALLERGIES: IV Contrast, Morphine Sulfate Start 20:11 10/01/2016 Maricarmen Gonzalez R.N., Stop 21:59 10/01/2016 Maricarmen Gonzalez R.N. Medication Administered: IV NS (SALINE), Dose: IV Fluids over 1 hour(s), Bolus: 1000 mL wide open, Dispensed: 1000 mL bag, Site: #1 right hand. Medication Ordered: IV NS : initial bolus 1000 mL (1000 mL/hr), then 20 mL/hr for X1 (NOW); Maxim. Given 20:12 10/01/2016 Maricarmen Gonzalez R.N. Medication Administered: ZOFRAN [IVP] (ONDANSETRON HCL), Dose: 4 mg IVP over 1 minute(s), Site: #1 right hand. Medication Ordered: Zofran IV 4 mg (NOW). Given 21:44 10/01/2016 Maricarmen Gonzalez R.N. Medication Administered: CIPROFLOXACIN [PO] (CIPROFLOXACIN), Dose: 500 mg Tablets PO. Medication Ordered: Ciprofloxacin PO 500 mg (NOW).
== END 2016-10-01 22:01 | disposition home or self-care (01) ==
LOC: ED SRH 19:13
DX: K52.9 Noninfective gastroenteritis and colitis, unspecified (principal); E86.9 Volume depletion, unspecified; E86.0 Dehydration; D69.6 Thrombocytopenia, unspecified; R79.89 Other specified abnormal findings of blood chemistry; J44.9 Chronic obstructive pulmonary disease, unspecified
CPT/HCPCS: 90004; 90100; 92010; 92235; 92530; 92760; 92761; 92762; 92763; 92764; 92765; 92766; 92767; 93004; 94001; 94060; 95059

== ENCOUNTER 2016-11-16 18:26 | Emergency (ER) | payer OTHER ==
--- NOTE | 2016-11-16 20:13 | ED ORDER SUMMARY ---
..... Patient: VALENCIA ALCARAZ OrderSheet [facility] VisitID: [id number] [address] [place] [address] 56y, F Registration Date/Time: 11/16/2016 ORDER SHEET Weight: 72.5 kg (stated) Allergies: IV Contrast, Morphine Sulfate, -floxacin GENERAL ORDERS: Ribs Unilat w PA Chest Left ( Chronic COPD. Left-sided rib pain after coughing today.) Urgent (18:51 11/16/2016 JCoatekennedi) (Ack 18:55 Feli) (19:11 Luis Miguel) MEDICATION ORDERS: IV FLUIDS: ORDER SHEET NOTES: [Electronically signed by Yasmeen Matias R.N. (21:50 11/16/2016)] [Electronically signed by Jemal Georges (22:36 11/16/2016)] [Electronically locked/signed by Yasmeen Matias R.N. (21:50 11/16/2016)]
--- NOTE | 2016-11-16 20:13 | ED CLINICAL REPORT ---
Clinical Report - Physicians/Mid Levels [facility] [address] [place] [address] 11/16/2016 18:29 Patient: VALENCIA ALCARAZ Arrived- By private vehicle. Historian- patient. HISTORY OF PRESENT ILLNESS Chief Complaint: COUGH. This started about 1 month ago; Patient Has a History of COPD and Hepatitis C. She Says for about the Last Month She's Been Having a COPD Exacerbation. She Was Seen about a Week Ago and Prescribed Prednisone She Says Which Helped. However, she [place] like She Was Still Getting Worse so She Went to Another ER Where She Was Prescribed Augmentin. She Says She [place] like She Was Getting Better but Today Coughed and [place] Severe Rib Lower Rib Area. She Denies Worsening Shortness of Breath. She Says It Just Hurts to Take Deep Breaths Now. She Says Overall Her COPD Is Much Better Than It Was Previously. and is still present. The illness is described as moderate. The patient has had a cough and difficulty breathing. She has had severe chest discomfort (Left Chest.). She has had a subjective fever (for 1 month). No chills. Similar symptoms previously: Recent medical care: The patient was seen recently at another facility in the emergency department. REVIEW OF SYSTEMS No nausea, vomiting or diarrhea. All systems otherwise negative, except as recorded above. PAST HISTORY See nurses notes. Lung disease. Chronic obstructive pulmonary disease. No history of diabetes mellitus. Type C hepatitis. SOCIAL HISTORY Smoker- current status unknown. History of drug use: methamphetamines. ADDITIONAL NOTES The nursing notes have been reviewed. PHYSICAL EXAM Appearance: Alert. No acute distress. Appears to be in pain. Eyes: Pupils equal, round and reactive to light. Eyes normal inspection. ENT: Ears normal. Nose normal. Pharynx normal. Uvula midline. Neck: Normal inspection. Neck supple. No JVD, meningeal signs or lymphadenopathy. CVS: Normal heart rate and rhythm. Heart sounds normal. Respiratory: No respiratory distress. Splinting present. Breath sounds normal. No rales, rhonchi or wheezes. Abdomen: Soft and nontender. Distention. Back: Normal inspection. No CVA tenderness. Skin: Skin warm and dry. No rash. Extremities: Extremities exhibit normal ROM. No lower extremity edema. Neuro: Oriented X 3. No alteration in mental status. Psych: Expansive affect. Speech is inappropriate. The patient exhibits altered thought processes, verbalized as flights of ideas and racing thoughts. LABS, X-RAYS, AND EKG Chest X-ray: Mild hyperinflation present. Consistent with COPD. Left-sided rib fracture laterally- 9th rib. Normal heart size. Mediastinum normal. No infiltrate. Views: PA and lateral. The X-rays were interpreted by the radiologist. PROGRESS AND PROCEDURES Course of Care: 18:51 11/16/16. Patient stable. Pain seems out of proportion for usual rib fracture. possible fracture, yet I still believe she is exaggerating symptoms. 19:23 11/16/16. She has a rib fracture. We will get old records from her last visit to ensure its not all but otherwise will give her a few Percocet for pain control. She needs to follow up with her primary care provider next week if she needs to continue on more pain meds. Disposition: Discharged in stable and improved condition. CLINICAL IMPRESSION Left rib fracture. Stable COPD. INSTRUCTIONS Rest at home for two days. Drink plenty of fluids. No dietary restrictions. Do not smoke. Warnings: CONTROLLED SUBSTANCE WARNINGS. GENERAL WARNINGS: Return or contact your physician immediately if your condition worsens or changes unexpectedly, if not improving as expected, or if other problems arise. Specifically return if vomiting, breathing difficulty or fever. Prescription Medications: Percocet 5 mg/325 mg: take 1 tablet orally every 6 hours as needed for pain. Dispense fifteen (15). No refill. Substitution is permissible. Follow-up: Follow up with your doctor in four days even if well. Understanding of the discharge instructions verbalized by patient. (Electronically signed by Jemal Georges, 11/16/2016 22:36)
--- NOTE | 2016-11-16 20:13 | ED CLINICAL REPORT ---
Clinical Report - Physicians/Mid Levels [facility] [address] [place] [address] 11/16/2016 18:29 Patient: VALENCIA ALCARAZ Arrived- By private vehicle. Historian- patient. HISTORY OF PRESENT ILLNESS Chief Complaint: COUGH. This started about 1 month ago; Patient Has a History of COPD and Hepatitis C. She Says for about the Last Month She's Been Having a COPD Exacerbation. She Was Seen about a Week Ago and Prescribed Prednisone She Says Which Helped. However, she [place] like She Was Still Getting Worse so She Went to Another ER Where She Was Prescribed Augmentin. She Says She [place] like She Was Getting Better but Today Coughed and [place] Severe Rib Lower Rib Area. She Denies Worsening Shortness of Breath. She Says It Just Hurts to Take Deep Breaths Now. She Says Overall Her COPD Is Much Better Than It Was Previously. and is still present. The illness is described as moderate. The patient has had a cough and difficulty breathing. She has had severe chest discomfort (Left Chest.). She has had a subjective fever (for 1 month). No chills. Similar symptoms previously: Recent medical care: The patient was seen recently at another facility in the emergency department. REVIEW OF SYSTEMS No nausea, vomiting or diarrhea. All systems otherwise negative, except as recorded above. PAST HISTORY See nurses notes. Lung disease. Chronic obstructive pulmonary disease. No history of diabetes mellitus. Type C hepatitis. SOCIAL HISTORY Smoker- current status unknown. History of drug use: methamphetamines. ADDITIONAL NOTES The nursing notes have been reviewed. PHYSICAL EXAM Appearance: Alert. No acute distress. Appears to be in pain. Eyes: Pupils equal, round and reactive to light. Eyes normal inspection. ENT: Ears normal. Nose normal. Pharynx normal. Uvula midline. Neck: Normal inspection. Neck supple. No JVD, meningeal signs or lymphadenopathy. CVS: Normal heart rate and rhythm. Heart sounds normal. Respiratory: No respiratory distress. Splinting present. Breath sounds normal. No rales, rhonchi or wheezes. Abdomen: Soft and nontender. Distention. Back: Normal inspection. No CVA tenderness. Skin: Skin warm and dry. No rash. Extremities: Extremities exhibit normal ROM. No lower extremity edema. Neuro: Oriented X 3. No alteration in mental status. Psych: Expansive affect. Speech is inappropriate. The patient exhibits altered thought processes, verbalized as flights of ideas and racing thoughts. LABS, X-RAYS, AND EKG Chest X-ray: Mild hyperinflation present. Consistent with COPD. Left-sided rib fracture laterally- 9th rib. Normal heart size. Mediastinum normal. No infiltrate. Views: PA and lateral. The X-rays were interpreted by the radiologist. PROGRESS AND PROCEDURES Course of Care: 18:51 11/16/16. Patient stable. Pain seems out of proportion for usual rib fracture. possible fracture, yet I still believe she is exaggerating symptoms. 19:23 11/16/16. She has a rib fracture. We will get old records from her last visit to ensure its not all but otherwise will give her a few Percocet for pain control. She needs to follow up with her primary care provider next week if she needs to continue on more pain meds. Disposition: Discharged in stable and improved condition. CLINICAL IMPRESSION Left rib fracture. Stable COPD. INSTRUCTIONS Rest at home for two days. Drink plenty of fluids. No dietary restrictions. Do not smoke. Warnings: CONTROLLED SUBSTANCE WARNINGS. GENERAL WARNINGS: Return or contact your physician immediately if your condition worsens or changes unexpectedly, if not improving as expected, or if other problems arise. Specifically return if vomiting, breathing difficulty or fever. Prescription Medications: Percocet 5 mg/325 mg: take 1 tablet orally every 6 hours as needed for pain. Dispense fifteen (15). No refill. Substitution is permissible. Follow-up: Follow up with your doctor in four days even if well. Understanding of the discharge instructions verbalized by patient. (Electronically signed by Jemal Georges, 11/16/2016 22:36)
--- NOTE | 2016-11-16 20:13 | ED NURSING NOTES ---
Clinical Report - Nurses [facility] [address] [place] [address] 11/16/2016 18:29 Patient: VALENCIA ALCARAZ TRIAGE Triage time 18:33 Nov 16 2016. Acuity: LEVEL 4. Chief Complaint: COUGH and (Sinus infection). 18:41 11/16/16. Alert. No acute distress. SEPSIS SCREEN: Sepsis Screen. Negative (no infection suspected/documented). JOSE MARIA COMA SCORE: [place] Coma Scale: 15- eyes open spontaneously (4); best verbal response- oriented x 4 (5); best motor response- obeys commands (6). --18:41 Katlin Hall 18:41 11/16/16. BP: 121/69. HR: 106. RR: 20. O2 saturation: 100%. Temp: 98.2 F. Pain level now 8/10. --18:41 Katlin aHll. Weight: 72.5 kg stated. Height/Length: 63 inches Per Patient. BMI: 28.3. --18:38 Katlin Hall. Medications Albuterol Sulfate Inhalation. --18:37 Katlin Hall PredniSONE Oral. --18:37 Katlin Hall Beclomethasone Dipropionate Inhalation. --18:37 Katlin Hall Another steroid. --18:38 Katlin Hall Percocet Oral 5/325 mg. --18:38 Katlin Hall Hydrocodone-Homatropine Oral (Tablet 5-1.5 mg). --18:38 Katlin Hall Probiotic Oral. --18:38 Katlin Hall Augmentin Oral. --18:39 Katlin Hall. Medication/allergy information source: the patient. --18:41 Katlin Hall. Allergies IV Contrast. Morphine Sulfate. --18:38 Katlin Hall -floxacin. ("bursts tendons") --18:39 Katlin Hall. History Arrived by private vehicle. Historian: patient. Accompanied by friend. Primary physician (Aparna). Onset. (One month ago, but rib pain started today.). ( Patient reports a history of COPD and a sinus infection for about a month. Today she coughed hard and felt something "flip" inside of her. Now c/o severe side pain worsened by movement.). She has had fatigue and sinus pain. No chills, chest congestion, abdominal pain, vomiting or diarrhea. No known contact with a sick individual. No recent travel. Treatment ROD BUSTER HELPER: (cough syrup-vicoden with steroid mix). PAST MEDICAL HX: Pneumonia. Asthma. Chronic obstructive pulmonary disease. SOCIAL HX: Light tobacco smoker (cigarette)- less than 1/2 a pack per day. Occasional alcohol use. History of IV drug use: methamphetamines. No recent travel. No known contact with a sick individual. FALL RISK ASSESSMENT: Fall risk assessment completed. No fall risk identified. NUTRITIONAL RISK ASSESSMENT: The nutritional risk assessment revealed no deficiencies. FUNCTIONAL ASSESSMENT: Functional assessment: no impairments noted. LEARNING NEEDS ASSESSMENT: The learning needs assessment revealed no barriers. SKIN INTEGRITY ASSESSMENT: Skin integrity risk assessment completed. No skin integrity risk identified. --18:41 Katlin Hall. PROBLEMS: Hepatitis [Chronic]. --18:39 Katlin Hall Hypocalcemia. Vomiting. Diarrhea. Gastroenteritis. Enlarged spleen. Lumbar Strain. Abnormal Liver Function Test. Abdominal Pain. Hyperthyroidism. Neck pain. Degenerative Joint Disease. Ulcer years ago. Contusion. Abrasion(s). UTI - Urinary Tract Infection. Eye Injury. Substance Abuse. Thyroid Disease. Chronic Back Pain. Corneal Abrasion. --18:39 Katlin Hall Peptic Ulcer Disease [RuleOut]. --18:39 Katlin Hall The following entry was modified by Katlin Hall, 18:40 <<STRICKEN ENTRY-- COPD - Chronic Obstructive Pulmonary Disease. --00:26 Katlin Hall --END STRIKE>>. ADDITIONAL SURGERIES: Appendectomy. Tubal Ligation. --18:39 Katlin Hall. Assessment The patient states feels the same. --18:41 Katlin Hall. Interventions ID band on patient. --18:41 Katlin Hall. PHYSICAL ASSESSMENT 18:41 11/16/16. Ambulatory to room. Patient gowned. GENERAL / NEURO / PSYCH: Alert. Oriented X 4. Appears in pain. HEENT: Mucous membranes are pink. RESPIRATORY: Respirations not labored. Chest nontender. CVS: Capillary refill less than 2 seconds. Pulses within normal limits. GI / : Abdomen soft and nontender and normal bowel sounds. SKIN: Skin intact. Skin is warm and dry. Normal skin turgor. --18:41 Katlin Hall. NURSING PROGRESS NOTES 18:41 11/16/16. The plan of care for this patient has been created. Head of bed elevated. Reassurance given. Two patient identifiers checked. Call light placed in reach. Side rails up x 1. Bed placed in lowest position. Brakes of bed on. Patient ready for evaluation- chart flagged and ED physician and PA notified. --18:41 Katlin Hall. DISPOSITION / DISCHARGE 20:13 11/16/16. No learning barriers present. Discharge instructions provided and reviewed with the patient. Reviewed warnings. Reviewed medication(s). Treatments reviewed. Reviewed referrals. Activity restrictions reviewed. Patient and strike plate attacher verbalized understanding. Written instructions provided in [place]. The patient was discharged home and accompanied by strike plate attacher. She left the Emergency Department ambulatory and via private vehicle. Street Light Wirer driving. --20:13 Yasmeen Matias R.N. 20:10 11/16/16. BP: 95/64 taken on the left arm, while sitting. HR: 86. RR: 16. O2 saturation: 95%. Temp: deferred. Pain level now: 01/03. --20:13 Yasmeen Matias R.N. Locked/Released at 11/16/2016 21:50 by Yasmeen Matias R.N.
--- NOTE | 2016-11-16 20:13 | ED ORDER SUMMARY ---
..... Patient: VALENCIA ALCARAZ OrderSheet [facility] VisitID: [id number] [address] [place] [address] 56y, F Registration Date/Time: 11/16/2016 ORDER SHEET Weight: 72.5 kg (stated) Allergies: IV Contrast, Morphine Sulfate, -floxacin GENERAL ORDERS: Ribs Unilat w PA Chest Left ( Chronic COPD. Left-sided rib pain after coughing today.) Urgent (18:51 11/16/2016 JCoatekennedi) (Ack 18:55 Feli) (19:11 Luis Miguel) MEDICATION ORDERS: IV FLUIDS: ORDER SHEET NOTES: [Electronically signed by Yasmeen Matias R.N. (21:50 11/16/2016)] [Electronically signed by Jemal Georges (22:36 11/16/2016)] [Electronically locked/signed by Yasmeen Matias R.N. (21:50 11/16/2016)]
--- NOTE | 2016-11-16 20:13 | ED NURSING NOTES ---
Clinical Report - Nurses Located Within [facility] [address] [place] [address] 11/16/2016 18:29 Patient: VALENCIA ALCARAZ TRIAGE Triage time 18:33 Nov 16 2016. Acuity: LEVEL 4. Chief Complaint: COUGH and (Sinus infection). 18:41 11/16/16. Alert. No acute distress. SEPSIS SCREEN: Sepsis Screen. Negative (no infection suspected/documented). JOSE MARIA COMA SCORE: [place] Coma Scale: 15- eyes open spontaneously (4); best verbal response- oriented x 4 (5); best motor response- obeys commands (6). --18:41 Katlin Hall 18:41 11/16/16. BP: 121/69. HR: 106. RR: 20. O2 saturation: 100%. Temp: 98.2 F. Pain level now 8/10. --18:41 Katlin Hall. Weight: 72.5 kg stated. Height/Length: 63 inches Per Patient. BMI: 28.3. --18:38 Katlin Hall. Medications Albuterol Sulfate Inhalation. --18:37 Katlin Hall PredniSONE Oral. --18:37 Katlin Hall Beclomethasone Dipropionate Inhalation. --18:37 Katlin Hall Another steroid. --18:38 Katlin Hall Percocet Oral 5/325 mg. --18:38 Katlin Hall Hydrocodone-Homatropine Oral (Tablet 5-1.5 mg). --18:38 Katlni Hall Probiotic Oral. --18:38 Katlin Hall Augmentin Oral. --18:39 Katlin Hall. Medication/allergy information source: the patient. --18:41 Katlin Hall. Allergies IV Contrast. Morphine Sulfate. --18:38 Katlin Hall -floxacin. ("bursts tendons") --18:39 Katlin Hall. History Arrived by private vehicle. Historian: patient. Accompanied by friend. Primary physician (Aparna). Onset. (One month ago, but rib pain started today.). ( Patient reports a history of COPD and a sinus infection for about a month. Today she coughed hard and felt something "flip" inside of her. Now c/o severe side pain worsened by movement.). She has had fatigue and sinus pain. No chills, chest congestion, abdominal pain, vomiting or diarrhea. No known contact with a sick individual. No recent travel. Treatment OVERHAULER: (cough syrup-vicoden with steroid mix). PAST MEDICAL HX: Pneumonia. Asthma. Chronic obstructive pulmonary disease. SOCIAL HX: Light tobacco smoker (cigarette)- less than 1/2 a pack per day. Occasional alcohol use. History of IV drug use: methamphetamines. No recent travel. No known contact with a sick individual. FALL RISK ASSESSMENT: Fall risk assessment completed. No fall risk identified. NUTRITIONAL RISK ASSESSMENT: The nutritional risk assessment revealed no deficiencies. FUNCTIONAL ASSESSMENT: Functional assessment: no impairments noted. LEARNING NEEDS ASSESSMENT: The learning needs assessment revealed no barriers. SKIN INTEGRITY ASSESSMENT: Skin integrity risk assessment completed. No skin integrity risk identified. --18:41 Katlin Hall. PROBLEMS: Hepatitis [Chronic]. --18:39 Katlin Hlal Hypocalcemia. Vomiting. Diarrhea. Gastroenteritis. Enlarged spleen. Lumbar Strain. Abnormal Liver Function Test. Abdominal Pain. Hyperthyroidism. Neck pain. Degenerative Joint Disease. Ulcer years ago. Contusion. Abrasion(s). UTI - Urinary Tract Infection. Eye Injury. Substance Abuse. Thyroid Disease. Chronic Back Pain. Corneal Abrasion. --18:39 Katlin Hall Peptic Ulcer Disease [RuleOut]. --18:39 Katlin Hall The following entry was modified by Katlin Hall, 18:40 <<STRICKEN ENTRY-- COPD - Chronic Obstructive Pulmonary Disease. --00:26 Katlin Hall --END STRIKE>>. ADDITIONAL SURGERIES: Appendectomy. Tubal Ligation. --18:39 Katlin Hall. Assessment The patient states feels the same. --18:41 Katlin Hall. Interventions ID band on patient. --18:41 Katlin Hall. PHYSICAL ASSESSMENT 18:41 11/16/16. Ambulatory to room. Patient gowned. GENERAL / NEURO / PSYCH: Alert. Oriented X 4. Appears in pain. HEENT: Mucous membranes are pink. RESPIRATORY: Respirations not labored. Chest nontender. CVS: Capillary refill less than 2 seconds. Pulses within normal limits. GI / : Abdomen soft and nontender and normal bowel sounds. SKIN: Skin intact. Skin is warm and dry. Normal skin turgor. --18:41 Katlin Hall. NURSING PROGRESS NOTES 18:41 11/16/16. The plan of care for this patient has been created. Head of bed elevated. Reassurance given. Two patient identifiers checked. Call light placed in reach. Side rails up x 1. Bed placed in lowest position. Brakes of bed on. Patient ready for evaluation- chart flagged and ED physician and PA notified. --18:41 Katlin Hall. DISPOSITION / DISCHARGE 20:13 11/16/16. No learning barriers present. Discharge instructions provided and reviewed with the patient. Reviewed warnings. Reviewed medication(s). Treatments reviewed. Reviewed referrals. Activity restrictions reviewed. Patient and supervisory cbp officer verbalized understanding. Written instructions provided in [place]. The patient was discharged home and accompanied by supervisory cbp officer. She left the Emergency Department ambulatory and via private vehicle. Pneumatic Tool Operator driving. --20:13 Yasmeen Matias R.N. 20:10 11/16/16. BP: 95/64 taken on the left arm, while sitting. HR: 86. RR: 16. O2 saturation: 95%. Temp: deferred. Pain level now: 01/03. --20:13 Yasmeen Matias R.N. Locked/Released at 11/16/2016 21:50 by Yasmeen Matias R.N.
--- NOTE | 2016-11-16 21:56 | DIAGNOSTIC IMAGING REPORT ---
PROCEDURE: XR RIBS UNILAT W/PA CHEST-LT INDICATION: Rib pain following coughing TECHNIQUE: Three views of the left ribs with single PA view chest. COMPARISON: Chest x-ray 08/14/2010 FINDINGS: LEFT RIBS: Mildly displaced left ninth rib fracture. No suspicious rib lesions. CHEST: Normal cardiomediastinal contour and central vessels. Mildly low lung volumes. Mild left base atelectatic changes. No pneumothorax or effusion. Moderate chronic upper thoracic dextroscoliosis. IMPRESSION: 1. Mildly displaced left ninth rib fracture. 2. Mild left base atelectasis, likely due to splinting. 3. Chronic upper thoracic scoliosis.
--- NOTE | 2016-11-16 22:36 | ED MED RECONCILIATION SUMMARY ---
Patient: VALENCIA ALCARAZ Medication Reconciliation Report [facility] VisitID: [id number] [address] [place] [address] 56y, F Registration Date/Time: 11/16/2016 Weight: 72.5 kg Height/Length: 63 in. BMI: 28.3 ALLERGIES: -floxacin, IV Contrast, Morphine Sulfate The patient's Home Medications are listed below: THE FOLLOWING MEDICATIONS NEED TO BE RECONCILED: Albuterol Sulfate Inhalation Another steroid Augmentin Oral Beclomethasone Dipropionate Inhalation Hydrocodone-Homatropine Oral (5-1.5 mg) Percocet Oral 5/325 mg PredniSONE Oral Probiotic Oral The source(s) of the original Home Medication information: patient The following Medications were given to the patient in the Emergency Department: None. The following Medications were prescribed to the patient: Percocet 5 mg/325 mg: take 1 tablet orally every 6 hours as needed for pain. Dispense fifteen (15). No refill. Substitution is permissible. -- Jemal Georges
--- NOTE | 2016-11-16 22:36 | ED DISCHARGE INSTRUCTIONS ---
Patient: VALENCIA ALCARAZ General Instructions [facility] VisitID: [id number] [address] [place] [address] 56y, F Registration Date/Time: 11/16/2016 Left rib fracture. Stable COPD. INSTRUCTIONS Rest at home for two days. Drink plenty of fluids. No dietary restrictions. Do not smoke. Warnings: CONTROLLED SUBSTANCE WARNINGS. GENERAL WARNINGS: Return or contact your physician immediately if your condition worsens or changes unexpectedly, if not improving as expected, or if other problems arise. Specifically return if vomiting, breathing difficulty or fever. Prescription Medications: Percocet 5 mg/325 mg: take 1 tablet orally every 6 hours as needed for pain. Dispense fifteen (15). No refill. Substitution is permissible. Follow-up: Follow up with your doctor in four days even if well. Understanding of the discharge instructions verbalized by patient. ADDITIONAL INFORMATION Rib Fracture You have a fracture (break) of one or more ribs. Rib fractures do not require a cast like other bones. They will heal by themselves in about 4-6 weeks. The first 3-4 weeks will be the most painful because deep breathing, coughing or changing position from sitting to lying down, may cause the broken ends to move slightly. Home Care: Rest. You should not be doing any heavy lifting or strenuous exertion until the pain goes away. Because it hurts to breathe when you have a broken rib, there is risk of getting pneumonia from poor airflow through your lungs. To prevent this: Take four very deep breaths at least four times a day (exhale through pursed lips as if you are blowing up a balloon). If an "incentive spirometer" (breathing exercise device) was given to you, use it at least four times a day, or as directed. Apply an ice pack (ice cubes in a plastic bag, wrapped in a towel) over the injured area for 20 minutes every 1-2 hours the first day. Continue with ice packs 3-4 times a day for the next two days, then as needed for the relief of pain and swelling. You may use acetaminophen (Tylenol) or ibuprofen (Motrin, Advil) to control pain, unless another pain medicine was prescribed. [NOTE: If you have chronic liver or kidney disease or ever had a stomach ulcer or GI bleeding, talk with your doctor before using these medicines.] If your pain is not controlled by the treatment given, contact your doctor. Sometimes a stronger pain medicine may be needed. A nerve block (numbing the nerve between the ribs) can be performed in case of severe pain. Follow Up with your doctor during the next week, or as advised. Rarely, a broken rib will cause complications within the first few days that may not be evident during your initial exam (such as, collapsed lung, bleeding around the lung or into the abdomen, or pneumonia). Therefore, watch for the signs below. [NOTE: If x-rays were taken, they will be reviewed by a radiologist. You will be notified of any new findings that may affect your care.] Get Prompt Medical Attention if any of the following occur: Shortness of breath Increasing chest pain with breathing Dizziness, weakness or fainting New or worsening abdominal pain Fever of 100.4F (38C) or higher, or as directed by your healthcare provider Congested cough COPD Flare Both emphysema and chronic bronchitis are forms of chronic obstructive pulmonary disease (COPD). It is most often caused by many years of smoking tobacco. Many things can make your lung disease suddenly get worse. These causes include the common cold, pneumonia, acute bronchitis, missing doses of your regular breathing medicines, or being around smoke, dust, or other air pollutants. A COPD flare may last 7 to 14 days. Your doctor may prescribe medicineto relax your airways and prevent wheezing. Your doctor may also prescribe antibiotics if he or she thinks you havea bacterial infection. Prednisone can helpease inflammation in a severe attack. Home care Here are things you can do at home: Drink lots of water or other fluids (at least 10 glasses a day) during an attack. This will loosen lung secretions and make it easier to breathe. If you have heart or kidney disease, check with your doctor before you drink extra amounts of fluids. Take prescribed medicine exactly at the times advised. If you have a hand-held inhaler or aerosol breathing medicine, don't use it more than once every 4 hours, unless your doctor tells you to. If you were givenan antibiotic or prednisone, take all of the medicine even if you are feeling better after a few days. Don't smoke. Avoid being aroundthe smoke of others. If you were given an inhaler, use it exactly as directed. If you need to use it more often than prescribed, your condition may be getting worse. Call your doctor. Follow-up care Follow up with your health care provider.If you are 65 or older or have chronic asthma or COPD, you should get a single dose of the pneumococcal vaccine and aflu shot each year. You may need a second dose of the pneumococcal vaccine if you had the first dose at a younger age. Your health care provider will let you know if you need a second dose. For all other people, the usual dose for the pneumococcal vaccine is 1 or 2 shots. Yourprovider can discuss this with you. When to seek medical care Get prompt medical attention ifany of these occur: Increased wheezing or shortness of breath Need to use your inhalers more often than usual without relief Fever of 100.4F(38C) or higher, or as directed by your health care provider Coughing up lots of dark-colored or bloody sputum (mucus) Chest pain with each breath You do not start to improve within 24 hours Oxycodone Hydrochloride, Acetaminophen Oral tablet What is this medicine? ACETAMINOPHEN; OXYCODONE (a set a JONATAN quinn fen; ox i KOE done) is a pain reliever. It is used to treat mild to moderate pain. How should I use this medicine? Take this medicine by mouth with a full glass of water. Follow the directions on the prescription label. Take your medicine at regular intervals. Do not take your medicine more often than directed. Talk to your art historian regarding the use of this medicine in children. Special care may be needed. Patients over 65 years old may have a stronger reaction and need a smaller dose. What side effects may I notice from receiving this medicine? Side effects that you should report to your doctor or health rn patient care as soon as possible: allergic reactions like skin rash, itching or hives, swelling of the face, lips, or tongue breathing difficulties, wheezing confusion light headedness or fainting spells severe stomach pain yellowing of the skin or the whites of the eyes Side effects that usually do not require medical attention (report to your doctor or health rn patient care if they continue or are bothersome): dizziness drowsiness nausea vomiting What may interact with this medicine? alcohol antihistamines barbiturates like amobarbital, butalbital, butabarbital, methohexital, pentobarbital, phenobarbital, thiopental, and secobarbital benztropine drugs for bladder problems like solifenacin, trospium, oxybutynin, tolterodine, hyoscyamine, and methscopolamine drugs for breathing problems like ipratropium and tiotropium drugs for certain stomach or intestine problems like propantheline, homatropine methylbromide, glycopyrrolate, atropine, belladonna, and dicyclomine general anesthetics like etomidate, ketamine, nitrous oxide, propofol, desflurane, enflurane, halothane, isoflurane, and sevoflurane medicines for depression, anxiety, or psychotic disturbances medicines for sleep muscle relaxants naltrexone narcotic medicines (opiates) for pain phenothiazines like perphenazine, thioridazine, chlorpromazine, mesoridazine, fluphenazine, prochlorperazine, promazine, and trifluoperazine scopolamine tramadol trihexyphenidyl What if I miss a dose? If you miss a dose, take it as soon as you can. If it is almost time for your next dose, take only that dose. Do not take double or extra doses. Where should I keep my medicine? Keep out of the reach of children. This medicine can be abused. Keep your medicine in a safe place to protect it from theft. Do not share this medicine with anyone. Selling or giving away this medicine is dangerous and against the law. Store at room temperature between 20 and 25 degrees C (68 and 77 degrees F). Keep container tightly closed. Protect from light. This medicine may cause accidental overdose and if it is taken by other adults, children, or pets. Flush any unused medicine down the toilet to reduce the chance of harm. Do not use the medicine after the expiration date. What should I tell my health care provider before I take this medicine? They need to know if you have any of these conditions: brain tumor Crohn's disease, inflammatory bowel disease, or ulcerative colitis drink more than 3 alcohol containing drinks per day drug abuse or addiction head injury heart or circulation problems kidney disease or problems going to the bathroom liver disease lung disease, asthma, or breathing problems an unusual or allergic reaction to acetaminophen, oxycodone, other opioid analgesics, other medicines, foods, dyes, or preservatives or trying to get breast-feeding What should I watch for while using this medicine? Tell your doctor or health rn patient care if your pain does not go away, if it gets worse, or if you have new or a different type of pain. You may develop tolerance to the medicine. Tolerance means that you will need a higher dose of the medication for pain relief. Tolerance is normal and is expected if you take this medicine for a long time. Do not suddenly stop taking your medicine because you may develop a severe reaction. Your body becomes used to the medicine. This does NOT mean you are addicted. Addiction is a behavior related to getting and using a drug for a non-medical reason. If you have pain, you have a medical reason to take pain medicine. Your doctor will tell you how much medicine to take. If your doctor wants you to stop the medicine, the dose will be slowly lowered over time to avoid any side effects. You may get drowsy or dizzy. Do not drive, use machinery, or do anything that needs mental alertness until you know how this medicine affects you. Do not stand or sit up quickly, especially if you are an older patient. This reduces the risk of dizzy or fainting spells. Alcohol may interfere with the effect of this medicine. Avoid alcoholic drinks. There are different types of narcotic medicines (opiates) for pain. If you take more than one type at the same time, you may have more side effects. Give your health care provider a list of all medicines you use. Your doctor will tell you how much medicine to take. Do not take more medicine than directed. Call emergency for help if you have problems breathing. The medicine will cause constipation. Try to have a bowel movement at least every 2 to 3 days. If you do not have a bowel movement for 3 days, call your doctor or health rn patient care. Do not take Tylenol (acetaminophen) or medicines that have acetaminophen with this medicine. Too much acetaminophen can be very dangerous. Many nonprescription medicines contain acetaminophen. Always read the labels carefully to avoid taking more acetaminophen. You have been given the following additional information: Fracture, Rib COPD Flare Oxycodone Hydrochloride, Acetaminophen Oral tablet Rest at home for two days. (Electronically signed by Jemal Georges, 11/16/2016 22:36)
--- NOTE | 2016-11-16 22:36 | ED MED RECONCILIATION SUMMARY ---
Patient: VALENCIA ALCARAZ Medication Reconciliation Report [facility] VisitID: [id number] [address] [place] [address] 56y, F Registration Date/Time: 11/16/2016 Weight: 72.5 kg Height/Length: 63 in. BMI: 28.3 ALLERGIES: -floxacin, IV Contrast, Morphine Sulfate The patient's Home Medications are listed below: THE FOLLOWING MEDICATIONS NEED TO BE RECONCILED: Albuterol Sulfate Inhalation Another steroid Augmentin Oral Beclomethasone Dipropionate Inhalation Hydrocodone-Homatropine Oral (5-1.5 mg) Percocet Oral 5/325 mg PredniSONE Oral Probiotic Oral The source(s) of the original Home Medication information: patient The following Medications were given to the patient in the Emergency Department: None. The following Medications were prescribed to the patient: Percocet 5 mg/325 mg: take 1 tablet orally every 6 hours as needed for pain. Dispense fifteen (15). No refill. Substitution is permissible. -- Jemal Georges
--- NOTE | 2016-11-16 22:36 | ED MAR SUMMARY ---
..... Medication Administration Record [facility] [address], [place] [id number] Patient: VALENCIA ALCARAZ Visit ID: [id number] 56y, F Weight: 72.5 kg Height/Length: 63 in BMI: 28.3 ALLERGIES: IV Contrast, Morphine Sulfate, -floxacin
--- NOTE | 2016-11-16 22:36 | ED MAR SUMMARY ---
..... Medication Administration Record [facility] [address] [place], [place] [id number] Patient: VALENCIA ALCARAZ Visit ID: [id number] 56y, F Weight: 72.5 kg Height/Length: 63 in BMI: 28.3 ALLERGIES: IV Contrast, Morphine Sulfate, -floxacin
== END 2016-11-16 20:13 | disposition home or self-care (01) ==
LOC: ED SRH 18:26
DX: S22.32XA Fracture of one rib, left side, initial encounter for closed fracture (principal); J44.9 Chronic obstructive pulmonary disease, unspecified; Y93.89 Activity, other specified; Y99.9 Unspecified external cause status; Y92.9 Unspecified place or not applicable; B19.20 Unspecified viral hepatitis C without hepatic coma